=== PATIENT | male | born 1965 | race Caucasian/White ===

== ENCOUNTER → 2024-01-12 11:38 | Day surgery (SDC) | payer BC, SELFPAY ==
[2024-01-12 12:53] VITALS: BMI 33.5
[2024-01-12 12:59] VITALS: BP 166/91
[2024-01-12 13:10] LABS: Glucose - Point of Care 109 mg/dl (70-99)
--- NOTE | 2024-01-12 15:55 | ITS.CL.IMPLP ---
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
Implant Loop
Procedure Report:
LINQ IMPLANTED MONITOR REMOVAL
Date of Procedure: 01/12/24
Primary Care Provider: Dr Carlos Muhammad
Primary gambling box person: Dr Ryan Mittal
PROCEDURES:
1. Removal of implanted loop recorder
INDICATION FOR PROCEDURE:
1. Loop Recorder at end of battery longevity
After informed consent was obtained,'time out' was called and confirmed, the patient was prepped and draped in a sterile fashion.
SEDATION: Via the anesthesia department with conscious sedation
Lidocaine with epi was used for local anesthesia. An incision was made along the prior incision and the Linq monitor was carefully dissected from the pocket. The pocket was liberally irrigated with antibiotic solution.
COMPLICATIONS:
None
CONCLUSIONS:
1. Removal of implanted loop recorder.
RECOMMENDATIONS:
In-Office wound check in 7-14 days.
--- NOTE | 2024-01-12 15:56 | ITS.CL.IMPLP ---
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
Implant Loop
Procedure Report:
Date of Procedure: 01/12/24
Primary Care Provider: Dr Carlos Muhammad
Primary saddle stitcher: Dr Ryan Mittal
Procedure: Insertable Loop Recorder Implantation
Indication:
Cryptogenic CVA
Procedure:
The patient was brought to the procedure area in a fasting state. The anterior chest was prepped and draped in standard sterile fashion. The area of previous loop recorder implantation was utilized for deployment of the new implantable loop
recorder. A tunnel was created in the subcutaneous tissue at a 45� angle along the coronal plane away from the sternum and towards the left flank. The tunneling device was inverted and the plunger was depressed, inserting the loop recorder into the
subcutaneous space. The tunneling device was removed. Adequate signal was confirmed. Absorbable suture was used to close the wound in the typical fashion. The estimated blood loss was < 1 cc. A clean dressing was placed over the wound.
There were no complications.
Implant:
[employer] Reveal LINQ II
Conclusion: Uncomplicated implantation of loop recorder.
Recommendation: Routine ILR care.
Copy:
Primary Care Provider: Dr Carlos Muhammad
Primary saddle stitcher: Dr Ryan Mittal
[2024-01-12 16:02] VITALS: BP 115/69
[2024-01-12 16:17] VITALS: BP 119/64
[2024-01-12 16:32] VITALS: BP 111/79
[2024-01-12] MEDS: TYLENOL 650 MG PO (16:36)
[2024-01-12 16:37] LABS: Glucose - Point of Care 92 mg/dl (70-99)
--- NOTE | 2024-01-12 16:40 | PTCARENOTE ---
PT C/O HEADACHE. STARTED MILD AND NOW A 01/07. RICCO SLEEVE BOTTOM FELLER AWARE. PT RECEIVED TYLENOL ORDERED. PT OK FOR D/C PER RICCO ANAYA
[2024-01-12 16:47] VITALS: BP 129/71
== END | disposition home or self-care (01) ==
LOC: CATH 11:38
PROVIDERS: ATTENDING PHYSICIAN Internal Medicine Cardiovascular Disease; FAMILY PHYSICIAN Family Medicine; OTHER PHYSICIAN Internal Medicine Cardiovascular Disease
DX: Z09 Encounter for follow-up examination after completed treatment for conditions other than malignant neoplasm (principal); Z86.73 Personal history of transient ischemic attack (TIA), and cerebral infarction without residual deficits; I10 Essential (primary) hypertension; E78.5 Hyperlipidemia, unspecified; E11.8 Type 2 diabetes mellitus with unspecified complications; K85.90 Acute pancreatitis without necrosis or infection, unspecified; Z79.4 Long term (current) use of insulin; Z79.82 Long term (current) use of aspirin
CPT/HCPCS: 33286; 33285; 82962; C1764

== ENCOUNTER → 2024-06-19 15:40 | Outpatient (REF) | payer BC, SELFPAY | LOC: HWRAD 15:40 | PROVIDERS: ATTENDING PHYSICIAN Specialist | DX: N20.0 Calculus of kidney (principal) | CPT/HCPCS: 74018 ==

== ENCOUNTER 2024-07-06 06:21 | Day surgery (SDC) | payer BC, SELFPAY ==
[2024-07-03 13:03] VITALS: BMI 34.5
[2024-07-03 13:50] LABS: Hematocrit 46.5 % (39.0-52.0); Hemoglobin 15.5 g/dL (13.0-18.0); Mean Corp Hgb Conc. 33.3 g/dL (33.0-37.0); Mean Corpuscular Hgb 28.1 pg (27.0-31.0); Mean Corpuscular Volume 84.4 fL (80.0-94.0); Mean Platelet Volume 9.6 fL (7.4-10.4); Platelet Count 227 10^3/uL (130-400); Red Blood Cell Count 5.51 10^6/uL (4.70-6.10); Red Cell Dist. Width 13.6 % (11.5-14.5); White Blood Cell Count 6.1 10^3/uL (4.8-10.8)
--- NOTE | 2024-07-04 16:32 | PTCARENOTE ---
Abn ECG, Dr. Oneal made aware, no new interventions requested.
[2024-07-06] VITALS (7 sets, daily range): BP systolic 134–163; BP diastolic 63–85; BMI 34.5
[2024-07-06 08:45] LABS: Glucose - Point of Care 145 mg/dl (70-99)
[2024-07-06 10:52] LABS: Glucose - Point of Care 141 mg/dl (70-99)
[2024-07-06] MEDS: Pyridium 200 MG PO (11:15)
[2024-07-06] MEDS: FLOMAX 0.4 MG PO (11:15)
--- NOTE | 2024-07-06 11:40 | SUR.PHASEI ---
vss, Dr Britt visits. Reviewed plan of care, pyridium and flomax given in pacu - tolerated well. no pain
== END 2024-07-06 12:14 | disposition home or self-care (01) ==
LOC: SDS 06:21
PROVIDERS: ATTENDING PHYSICIAN Specialist; FAMILY PHYSICIAN Family Medicine
DX: N20.0 Calculus of kidney (principal); R00.1 Bradycardia, unspecified; E11.8 Type 2 diabetes mellitus with unspecified complications; Z79.82 Long term (current) use of aspirin; Z79.4 Long term (current) use of insulin; Z86.73 Personal history of transient ischemic attack (TIA), and cerebral infarction without residual deficits; Z87.442 Personal history of urinary calculi; Z82.49 Family history of ischemic heart disease and other diseases of the circulatory system
CPT/HCPCS: 52356; 74018; 36415; 76000; 82365; 82962; 85027; 93005; A4300; C2617

== ENCOUNTER → 2024-09-22 11:51 | Outpatient (REF) | payer BC, SELFPAY | LOC: HWRAD 11:51 | PROVIDERS: ATTENDING PHYSICIAN Specialist; FAMILY PHYSICIAN Family Medicine | DX: N20.0 Calculus of kidney (principal) | CPT/HCPCS: 74018 ==

== ENCOUNTER → 2024-09-26 14:15 | Outpatient (REF) | payer BC, SELFPAY | LOC: HWRAD 14:15 | PROVIDERS: ATTENDING PHYSICIAN Physician Assistant; FAMILY PHYSICIAN Family Medicine | DX: E04.1 Nontoxic single thyroid nodule (principal) | CPT/HCPCS: 76536 ==

== ENCOUNTER → 2024-11-15 08:36 | Outpatient (REF) | payer OTHER, SELFPAY ==
[2024-11-15 09:04] VITALS: BP 142/79; BP_SYST 56
[2024-11-15 09:16] VITALS: BMI 33.8
== END ==
LOC: RADI 08:36
PROVIDERS: ATTENDING PHYSICIAN Physician Assistant; FAMILY PHYSICIAN Family Medicine
DX: E04.1 Nontoxic single thyroid nodule (principal)
CPT/HCPCS: 88173; 10005

== ENCOUNTER → 2024-12-20 07:39 | Outpatient (REF) | payer OTHER, SELFPAY ==
[2024-12-20 07:51] VITALS: BP 151/82; BP_SYST 68
== END ==
LOC: RADI 07:39
PROVIDERS: ATTENDING PHYSICIAN Physician Assistant; FAMILY PHYSICIAN Family Medicine
DX: E04.1 Nontoxic single thyroid nodule (principal)
CPT/HCPCS: 10005; 88173